=== PATIENT | female | born 1965 | race Caucasian/White ===

== ENCOUNTER 2024-07-26 11:12 | Observation (INO) ==
--- NOTE | 2024-07-26 11:31 | ED Triage Note ---
Date of Service July 26, 2024 Provider in Triage Author: Natalia Stanley History of Present Illness This patient was briefly evaluated while in triage. An abbreviated physical exam was performed. This patient is a 58-year-old Female who presents to the ED for evaluation of URI symptoms for about a week. Pt. was positive for Influenza A (H1N1) at [place] ED about a week ago. Pt. not feeling better. States she generally feels worse. Has been sick for almost 7 days. States she is a current smoker. Feeling more shortness of breath. Physical Exam VITALS: Vitals are noted on the nurse's note and reviewed by myself. GENERAL: This is a 58 year old female, in no acute distress, nondiaphoretic, well-developed well-nourished. SKIN: No obvious rashes, edema, erythema HEAD: Normocephalic atraumatic. EYES: Conjunctivae without injection, sclerae without icterus. NECK: No JVD. LUNGS: No retractions or accessory muscle use. MUSCULOSKELETAL: Normal gait. NEURO: Patient was alert and oriented to person place and time. No focal ne urological deficits. Initial orders for labs and / or imaging were placed and patient was placed in the waiting area until a bed is available. Please see further documentation for the full ED course.
--- NOTE | 2024-07-26 12:45 | Emergency Department Note ---
Impression & Plan Acute hypoxemic respiratory failure, Influenza A, Acute dyspnea ED Provider Note HISTORY OF PRESENT ILLNESS: Patient is a 58-year-old female presenting with shortness of breath and a cough. Patient reports symptoms started over a week ago and she went to [place] emergency department 1 week ago and was diagnosed with influenza A H1 N1 infection. She reports she was not given any Tamiflu. Reports over the last week she has had progressively worsening of her symptoms. States that she is only able to take a few steps at a time before becoming significantly winded. She denies any chest pain with her shortness of breath. She denies any nausea or vomiting. She does not wear any supplemental oxygen at baseline. Denies any DVT or PE history. Does not on any anticoagulation or antiplatelet therapy. Patient reports he has been having a cough productive of a green sputum. ROS: as above PHYSICAL EXAM: Constitutional: Patient appears in no acute distress. HENT: Head: Normocephalic and atraumatic. Eyes: EOMI, PERRL Mouth/Throat: Mucous membranes moist. Neck: Trachea midline. Neck supple. Cardiovascular: RRR, No murmurs, rubs or gallops. Intact distal pulses. Pulmonary/Chest: Conversationally dyspneic. Diffuse expiratory wheezes. Patient hypoxic on room air and placed on 2 L nasal cannula. Abdominal: Abdomen soft, no tenderness, rebound or guarding. Musculoskeletal: No edema, tenderness or deformity noted. Skin: Warm and dry. No rash, erythema, pallor or cyanosis Psychiatric: Appropriate mood and affect for situation. Neurological: Alert and keenly responsive. CN II-XII grossly intact, moving all extremities equally and fully. MDM: - Vitals signs showed hypoxia and tachycardia. - History obtained via patient. History as above. - Chronic conditions affecting care: None - Differential diagnoses include, but are not limited to: Congestive heart failure; acute coronary syndrome; COPD/asthma exacerbation; pulmonary edema; pulmonary embolism; pneumonia; pneumothorax; viral syndrome - Order placed for continuous cardiac monitoring. At this time, monitor showed rate of 83 bpm with normal sinus rhythm, per my interpretation. - External medical records reviewed. - EKG interpreted by myself showed normal sinus rhythm. Rate 92 bpm. QT 354. No acute ischemic changes. - Laboratory workup interpreted by myself showed normal WBC; normal PT/INR; slight hypokalemia (K 3.4); normal BNP; normal troponin - Viral respiratory panel positive for influenza A - CXR negative for pneumonia, per my interpretation - UA negative for infection - Patient given duoneb treatment in ER. - Given patient's 1 week of symptoms, she is outside the window for Tamiflu. Given new oxygen requirement, will admit to hospitalist service - Discussion was had with case assembler about patient's case and need for admission - Hospitalist consulted for admission - Patient admitted to [facility] hospitalist service for further evaluation and management. ASSESSMENT AND PLAN: Diagnosis: Acute hypoxia; influenza A; acute dyspnea Plan: admit Past Med/Surg History Problem List (Updated 07/26/24 @ 15:03 by Isabelle Mclaughlin MD) Acute dyspnea (Acute) Influenza A (Acute) Acute hypoxemic respiratory failure (Acute) Social History Smoking Status: Current every day smoker Preferred Language: Nepalese Feels Safe at Home: Yes Results & Data (ED) Vital Signs Vital Signs - 24 hr 07/26/24 11:28 07/26/24 14:50 07/26/24 14:50 Temperature 36.6 C 37.2 C Temperature Source Temporal Artery Scan Oral Pulse Rate 105 H 83 Pulse Rate [Apical] 84 Pulse Rhythm Regular Pulse Rhythm [Apical] Regular Pulse Strength Normal Pulse Strength [Apical] Normal Respiratory Rate 19 20 20 Respiratory Effort / Characteristics Non-Labored Spontaneous Non-Labored Spontaneous Respiratory Depth Normal Normal Respiratory Pattern Regular Regular Blood Pressure 104/74 Blood Pressure [Left Arm] 119/81 Blood Pressure Mean 84 Blood Pressure Mean [Left Arm] 93 Blood Pressure Position Sitting Blood Pressure Position [Left Arm] Semi-fowlers Pulse Oximetry 88 L 89 L 89 L Oxygen Delivery Method Room Air Room Air Room Air Oxygen Flow Rate Sepsis Recent Fever Within 48 Hours No Sepsis New/Unexplained Change in Mental Status No Sepsis Action Taken by Nursing No Action Required 07/26/24 14:51 07/26/24 14:51 Temperature Temperature Source Pulse Rate 83 Pulse Rate [Apical] Pulse Rhythm Regular Pulse Rhythm [Apical] Pulse Strength Pulse Strength [Apical] Respiratory Rate 20 20 Respiratory Effort / Characteristics Non-Labored Spontaneous Respiratory Depth Normal Respiratory Pattern Regular Blood Pressure Blood Pressure [Left Arm] Blood Pressure Mean Blood Pressure Mean [Left Arm] Blood Pressure Position Blood Pressure Position [Left Arm] Pulse Oximetry 93 93 Oxygen Delivery Method Nasal Cannula Nasal Cannula Oxygen Flow Rate 2 2 Sepsis Recent Fever Within 48 Hours Sepsis New/Unexplained Change in Mental Status Sepsis Action Taken by Nursing Laboratory Data 07/26/24 12:08 07/26/24 12:08 Lab Results 07/26/24 07/26/24 07/26/24 Range/Units 11:35 12:08 12:20 WBC 5.17 (4.8-10.8) K/ul RBC 4.57 (4.20-5.40) M/uL Hgb 15.0 (12.0-16.0) g/dl Hct 44.6 (37.0-47.0) % MCV 97.6 (80.0-100.0) fL MCH 32.8 (25.0-34.0) pg MCHC 33.6 (32.0-36.0) g/dL RDW Std Deviation 42.8 (36.4-46.3) fL RDW Coeff of Chey 11.9 (11.5-14.5) % Plt Count 186 (130-400) K/uL MPV 9.9 (9.4-12.4) fL Immature Gran % (Auto) 0.6 % Neut % (Auto) 47.7 % Lymph % (Auto) 42.0 % Allen % (Auto) 8.9 % Eos % (Auto) 0.2 % Baso % (Auto) 0.6 % Neut # (Auto) 2.47 (1.40-6.50) K/uL Lymph # (Auto) 2.17 (1.20-3.40) K/uL Allen # (Auto) 0.46 (0.11-0.59) K/uL Eos # (Auto) 0.01 (0.00-0.50) K/uL Baso # (Auto) 0.03 (0.00-0.20) K/uL Immature Gran # (Auto) 0.03 (0.01-0.20) K/uL RBC Morphology Unremarkable PT 10.9 (9.0-12.0) Seconds INR 1.0 (0.9-1.1) APTT 26 (21-31) Seconds PTT Ratio 1.0 D-Dimer 360 (0-500) ug/L FEU Sodium 140 (136-145) mmol/L Potassium 3.4 L (3.5-5.1) mmol/L Chloride 99 (98-107) mmol/L Carbon Dioxide 36 H (21-32) mmol/L Anion Gap 5 (3-11) BUN 10 (6-23) mg/dl Creatinine 0.58 L (0.6-1.2) mg/dl Est Cr Clr Drug Dosing 95.0 ml/min eGFR 104.83 BUN/Creatinine Ratio 17.2 (10-20) Glucose 136 H (70-99(Fasting)) mg/dl Calcium 9.0 (8.6-10.3) mg/dl Magnesium 2.0 (1.7-2.4) mg/dl Total Bilirubin 0.4 (0.2-1.0) mg/dl AST 26 (13-39) U/L ALT 28 (7-52) U/L Alkaline Phosphatase 60 (34-104) U/L Troponin I High Sens 3.0 (0-14) pg/ml B-Natriuretic Peptide 99 (0-100) pg/ml Total Protein 6.8 (6.0-8.3) gm/dl Albumin 4.0 (3.4-5.0) gm/dl Globulin 2.8 (2.5-4.0) gm/dl Albumin/Globulin Ratio 1.4 (0.9-2) Urine Color Dark Yellow Urine Appearance Clear (Clear) Urine pH 7.0 (4.5-7.5) Ur Specific [place] 1.022 (1.000-1.030) Urine Protein 1+ H (Negative) Urine Glucose (UA) Negative (Negative) Urine Ketones Trace H (Negative) Urine Blood Negative (Negative) Urine Nitrite Negative (Negative) Urine Bilirubin Negative (Negative) Urine Urobilinogen Negative (Negative) Ur Leukocyte Esterase 1+ H (Negative) Urine WBC (Auto) 6-10 H (0-5) /hpf Urine RBC (Auto) 0-2 (0-2) /hpf U Hyaline Cast (Auto) 0-2 (0-2) /lpf U Epithel Cells (Auto) 6-10 H (0-2) /hpf Urine Bacteria (Auto) 1+ H (None Seen) Urine Mucus Present A (None Prsent) Adenovirus (PCR) Not Detected (NotDetected) B. pertussis DNA (PCR) Not Detected (NotDetected) B.parapertussis DNA PCR Not Detected (NotDetected) C. pneumoniae DNA (PCR) Not Detected (NotDetected) Coronavirus OC43 (PCR) Not Detected (NotDetected) Coronavirus HKU1 (PCR) Not Detected (NotDetected) Coronavirus 229E (PCR) Not Detected (NotDetected) SARS-CoV-2 (PCR) Not Detected (NotDetected) Coronavirus NL63 (PCR) Not Detected (NotDetected) Human Metapneumovir PCR Not Detected (NotDetected) Influenza A (H3) PCR DETECTED A (NotDetected) Influenza Type B (PCR) Not Detected (NotDetected) M. pneumoniae (PCR) Not Detected (NotDetected) Parainfluenza 1 (PCR) Not Detected (NotDetected) Parainfluenza 2 (PCR) Not Detected (NotDetected) Parainfluenza 3 (PCR) Not Detected (NotDetected) Parainfluenza 4 (PCR) Not Detected (NotDetected) RSV (PCR) Not Detected (NotDetected) Entero/Rhino (PCR) Not Detected (NotDetected) Administered Medications Discontinued Medications Albuterol (Albut/Ipratrop 3mg/0.5mg Neb 3 Ml Vial) 3 ml NEB NOW STA; Protocol Stop: 07/26/24 14:43 Last Admin: 07/26/24 14:51 Dose: 3 ml Documented By: CAW Imaging Data Radiologist's Impression: Chest X-Ray 07/26/24 11:17 XR chest 1V not portable CLINICAL HISTORY: Dyspnea COMPARISON STUDY: None FINDINGS: Heart size and pulmonary vasculature are normal. Lungs are hyperexpanded consistent with emphysema. No effusion, consolidation, or pneumothorax. IMPRESSION: Hyperexpanded lungs with no pneumonia seen. ACT 112: Negative or not required by law. Electronically signed by: Gui Vasquez M.D. 07/26/2024 12:49 PM Discharge Plan Visit Data Chief Complaint: Flu Like Symptoms Stated Complaint: SOB, COUGH, CONGESTION, SHAKES, NO APPETITE ED Provider: Isabelle Mclaughlin Discharge Problem: Acute hypoxemic respiratory failure, Influenza A, Acute dyspnea Forms Stand Alone Forms: [facility] Referrals Referrals: PCP,NO [Physician] -
--- NOTE | 2024-07-26 12:50 | XRay Report ---
XR chest 1V not portable CLINICAL HISTORY: Dyspnea COMPARISON STUDY: None FINDINGS: Heart size and pulmonary vasculature are normal. Lungs are hyperexpanded consistent with em physema. No effusion, consolidation, or pneumothorax. IMPRESSION: Hyperexpanded lungs with no pneumonia seen. ACT 112: Negative or not required by law. Electronically signed by: Gui Vasquez M.D. 07/26/2024 12:49 PM
[2024-07-26 12:51] LABS: Hematocrit (blood only) 44.6 % (37.0-47.0); Mean Corpuscular Hemoglobin 32.8 pg (25.0-34.0); Mean Corpuscular Hgb Conc 33.6 g/dL (32.0-36.0); Mean Corpuscular Volume 97.6 fL (80.0-100.0); Mean Platelet Volume 9.9 fL (9.4-12.4); Platelet Count 186 K/uL (130-400); RDW Coefficient of Variation 11.9 % (11.5-14.5); RDW Standard Deviation 42.8 fL (36.4-46.3); Red Blood Count 4.57 M/uL (4.20-5.40); White Blood Count 5.17 K/ul (4.8-10.8)
[2024-07-26 13:01] LABS: Albumin Globulin Ratio 1.4 (0.9-2); BUN Creatinine Ratio 17.2 (10-20); Bilirubin,Total 0.4 mg/dl (0.2-1.0); Globulin 2.8 gm/dl (2.5-4.0); Potassium 3.4 mmol/L (3.5-5.1); Total Protein 6.8 gm/dl (6.0-8.3)
[2024-07-26 13:14] LABS: Basophils # (auto) 0.03 K/uL (0.00-0.20); Basophils % (auto) 0.6 %; Eosinophils # (auto) 0.01 K/uL (0.00-0.50); Eosinophils % (auto) 0.2 %; Immature Granulocytes # (auto) 0.03 K/uL (0.01-0.20); Immature Granulocytes % (auto) 0.6 %; Lymphocytes # (auto) 2.17 K/uL (1.20-3.40); Monocytes # (auto) 0.46 K/uL (0.11-0.59); Monocytes % (auto) 8.9 %; Neutrophils # (auto) 2.47 K/uL (1.40-6.50); Neutrophils % (auto) 47.7 %; RBC Morphology Unremarkable
[2024-07-26 13:15] LABS: D Dimer 360 ug/L FEU (0-500); Partial Thromboplastin Time 26 Seconds (21-31); Prothrombin Time 10.9 Seconds (9.0-12.0)
[2024-07-26 13:34] LABS: Adenovirus PCR Not Detected (NotDetected); Bordetella parapertussis PCR Not Detected (NotDetected); Bordetella pertussis PCR Not Detected (NotDetected); Chlamydia pneumoniae PCR Not Detected (NotDetected); Coronavirus 229E PCR Not Detected (NotDetected); Coronavirus CoV-2 (COVID19)PCR Not Detected (NotDetected); Coronavirus HKU1 PCR Not Detected (NotDetected); Coronavirus NL63 PCR Not Detected (NotDetected); Coronavirus OC43PCR Not Detected (NotDetected); Human Metapneumovirus PCR Not Detected (NotDetected); Influenza A (H3) PCR DETECTED (NotDetected); Influenza B PCR Not Detected (NotDetected); Mycoplasma pneumoniae PCR Not Detected (NotDetected); Parainfluenza Virus 1 PCR Not Detected (NotDetected); Parainfluenza Virus 2 PCR Not Detected (NotDetected); Parainfluenza Virus 3 PCR Not Detected (NotDetected); Parainfluenza Virus 4 PCR Not Detected (NotDetected); Respiratory Syncytial VirusPCR Not Detected (NotDetected); Rhinovirus/Enterovirus PCR Not Detected (NotDetected)
[2024-07-26 13:39] LABS: Appearance Urine Clear (Clear); Bacteria Urine Automated 1+ (None Seen); Bilirubin Urine Negative (Negative); Blood Urine Negative (Negative); Cast Urine Automated 0-2 /lpf (0-2); Color Urine Dark Yellow; Glucose Urine UA Negative (Negative); Ketones Urine Trace (Negative); Leukocyte Esterase Urine 1+ (Negative); Mucus Urine Present (None Prsent); Nitrite Urine Negative (Negative); Protein Urine 1+ (Negative); RBC Urine Automated 0-2 /hpf (0-2); Specific Gravity Urine 1.022 (1.000-1.030); Urobilinogen Urine Negative (Negative)
[2024-07-26] MEDS: ALBUT/IPRATROP 3MG/0.5MG NEB 3 ML VIAL NEB STA (14:51)
--- NOTE | 2024-07-26 15:27 | Hospitalist Consultation ---
Date of Consultation July 26, 2024 Assessment & Plan (1) Influenza A: (2) Acute dyspnea: (3) Hypokalemia: (4) Asymptomatic bacteriuria: (5) Depression: Plan Patient is a 58-year-old female with a past medical history of depression. She was evaluated by the hospitalist team due to hypoxia caused by influenza A. After 1 DuoNeb treatment she was titrated to room air and at 92%. #hypoxia/ influenza A Influenza A on biofire, symptomatic x1 week Patient 88% on room air -> 1 douneb tx -> 92 RA CXR does not show pneumonia consider discharge with duoneb prn at home Outside of Tamiflu window Supportive care #Hypokalemia Secondary to decreased oral intake 3.4 -> 40 MeQ ordered mg stable, 2.0; continue home supplement recommend repeat BMP with PCP in 1 week #bacteruria UA showing 1+ protein, trace ketones, 6-10 WBC, 6-10 epithelial cells, 1+ bacteria Denies urinary symptoms Likely contaminated, defer ABX treatment at this time #depression continue Buspar Dispo: discharge home, to be discharged by ED provider History of Present Illness History of Present Illness Patient is a 58-year-old female with a past medical history of depression. She stated she went to [place] ED 1 week ago and tested positive for influenza A and was told to continue with supportive care. She stated that over the past week she has not improved. She has dyspnea both at rest and on exertion. She has also had congestion with yellow/green sputum production and rhinorrhea. She stated she also has stomach pain that goes up under her ribs into her back, described more as pleuritic chest pain. She stated she did have constipation but it is now recommended. She has not had a decreased appetite and has been trying to stay well-hydrated, but she does endorse decreased oral intake. She did previously have a fever and nausea but those have both resolved. She denies dizziness, lightheadedness, chest pain, vomiting, diarrhea, dysuria, difficulty urinating, hematuria. She does endorse dark urine today. In ED today CXR just showed hyperinflation of lungs, no pneumonia. She did test positive for influenza A. She is now outside of Tamiflu window. She does have a long smoking history, smokes about 10 cigarettes a day for many years. She denies alcohol use. She denies any past history of CVA, diabetes, previous VTE, arrhythmias, CHF, COPD, asthma. She does not use oxygen at baseline; no CPAP/BiPAP at night. Her only home medication is BuSpar 5 Mg every morning. She wishes to be full code at this time. Upon examination, finished duoneb treatment, was titrated off O2 and on 92% RA. Patient History Social History Smoking Status: Current every day smoker Preferred Language: Mexican Feels Safe at Home: Yes Review of Systems Review of Systems: see HPI Physical Exam Physical Exam: The patient is awake, alert and oriented 3, well developed and well nourished, normocephalic and atraumatic, in no acute distress. Non-toxic appearing. HEENT- EOMI, mucous membranes moist. Hearing grossly intact. Heart-normal S1 and S2. No murmurs, rubs or gallops. Lungs-clear bilaterally, no respiratory distress, no accessory muscle use. Abdomen-normal bowel sounds and soft. No ascites noted. Non-tender. Extremities- no clubbing, cyanosis, or edema. Rheumatologic-normal range of motion. Psychiatric-normal affect. Results & Data Results & Data Vital Signs (Past 12 Hours) Vital Signs Temp Pulse Pulse Resp BP BP Pulse Ox 07/26/24 15:17 88 07/26/24 14:51 83 20 93 07/26/24 14:51 20 93 07/26/24 14:50 83 20 89 L 07/26/24 14:50 37.2 C 84 20 119/81 89 L 07/26/24 11:28 36.6 C 105 H 19 104/74 88 L O2 Del Method O2 Flow Rate 07/26/24 15:17 07/26/24 14:51 Nasal Cannula 2 07/26/24 14:51 Nasal Cannula 2 07/26/24 14:50 Room Air 07/26/24 14:50 Room Air 07/26/24 11:28 Room Air Medications Administered Duoneb x1 Postissium 40 MeQ PO PG Care Time/CCT Total # of Minutes Spent Total Time Spent with Patient: Total time spent is greater than 50% in coordination of care (as documented) at patient's floor/unit and/or counseling patient: Coding Diagnoses Influenza A J10.1 Acute dyspnea R06.00 Hypokalemia E87.6 Asymptomatic bacteriuria R82.71 Depression F32.A
--- NOTE | 2024-07-26 15:46 | History & Physical Report ---
Date of Service July 26, 2024 Assessment & Plan (1) Influenza A: (2) Acute dyspnea: (3) Hypokalemia: (4) Asymptomatic bacteriuria: (5) Depression: Plan Patient is a 58-year-old female with a past medical history of depression. She is being admitted for hypoxia caused by influenza A. #hypoxia/ influenza A Influenza A on biofire, symptomatic x1 week Patient 88% on room air -> 1 douneb tx -> 92 RA CXR does not show pneumonia Outside of Tamiflu window promote oral hydration incentive spirometry Mucinex scheduled DuoNebs IV solu-medrol 40 mg on admission, 40 IV in AM prior to dc #Hypokalemia Secondary to decreased oral intake 3.4 -> 40 MeQ ordered, will give additional 20 MeQ 1/7 PM mg stable, 2.0; continue home supplement repeat bmp and Mg in AM #bacteruria UA showing 1+ protein, trace ketones, 6-10 WBC, 6-10 epithelial cells, 1+ bacteria Denies urinary symptoms Likely contaminated, defer ABX treatment at this time cultures sent #depression continue Buspar VTE ppx: SCDs - low risk and anticipate overnight stay Diet: regular Dispo: med surg with continuous pulse ox plan for discharge 07/27 if non-hypoxic on room air; with steroid taper. Admission and Anticipated Discharge Date Admission Date: 07/26/24 History of Present Illness Chief Complaint: flu like sx Primary Care Provider: Meghana Chavira PA-C Patient is a 58-year-old female with a past medical history of depression. She stated she went to [place] ED 1 week ago and tested positive for influenza A and was told to continue with supportive care. She stated that over the past week she has not improved. She has dyspnea both at rest and on exertion. She has also had congestion with yellow/green sputum production and rhinorrhea. She stated she also has stomach pain that goes up under her ribs into her back, described more as pleuritic chest pain. She stated she did have constipation but it is now recommended. She has not had a decreased appetite and has been trying to stay well-hydrated, but she does endorse decreased oral intake. She did previously have a fever and nausea but those have both resolved. She denies dizziness, lightheadedness, chest pain, vomiting, diarrhea, dysuria, difficulty urinating, hematuria. She does endorse dark urine today. In ED today CXR just showed hyperinflation of lungs, no pneumonia. She did test positive for influenza A. She is now outside of Tamiflu window. She does have a long smoking history, smokes about 10 cigarettes a day for many years. She denies alcohol use. She denies any past history of CVA, diabetes, previous VTE, arrhythmias, CHF, COPD, asthma. She does not use oxygen at baseline; no CPAP/BiPAP at night. Her only home medication is BuSpar 5 Mg every morning. She wishes to be full code at this time. Home Medications Medication Instructions Recorded Confirmed Type buspirone 7.5 mg tablet 5 mg PO QAM 07/26/24 07/26/24 History Past Med/Surg History Problem List (Updated 07/26/24 @ 15:29 by Cindy Junior PA-C) Hypokalemia Depression Asymptomatic bacteriuria Acute dyspnea (Acute) Influenza A (Acute) Acute hypoxemic respiratory failure (Acute) Social History Smoking Status: Current every day smoker Preferred Language: Bengali Feels Safe at Home: Yes Review of Systems Review of Systems: see HPI Physical Exam Physical Exam: The patient is awake, alert and oriented 3, well developed and well nourished, normocephalic and atraumatic, in no acute distress. Non-toxic appearing. HEENT- EOMI, mucous membranes moist. Hearing grossly intact. Heart-normal S1 and S2. No murmurs, rubs or gallops. Lungs-clear bilaterally, no respiratory distress, no accessory muscle use. Abdomen-normal bowel sounds and soft. No ascites noted. Non-tender. Extremities- no clubbing, cyanosis, or edema. Rheumatologic-normal range of motion. Psychiatric-normal affect. Results & Data Results & Data Vital Signs (Past 12 Hours) Vital Signs Temp Pulse Pulse Pulse Resp Resp BP 07/26/24 15:43 91 H 07/26/24 15:17 88 07/26/24 14:51 83 07/26/24 14:51 20 07/26/24 14:50 83 20 07/26/24 14:50 37.2 C 84 07/26/24 11:28 36.6 C 105 H 19 104/74 BP Pulse Ox Pulse Ox O2 Del Method O2 Flow Rate 07/26/24 15:43 85 L Room Air 07/26/24 15:17 07/26/24 14:51 93 Nasal Cannula 2 07/26/24 14:51 93 Nasal Cannula 2 07/26/24 14:50 89 L Room Air 07/26/24 14:50 119/81 89 L Room Air 07/26/24 11:28 88 L Room Air Laboratory Results reviewed CBC, CMP, UA, bio fire Diagnostic Findings reviewed CXR Medications Administered douneb x 1 potassium 40 MeQ PO ECG Additional Comments: ordered Code Status & VTE Plan Code Status full VTE Prophylaxis Plan VTE Prophylaxis will be ordered: Yes Supervising Physician Co-Signing Physician Notes Attending addendum: I have physically seen this patient, have supervised the AJ's activities, and agree with the H&P unless as otherwise noted. Assessment and Plan: Acute respiratory failure with hypoxia/influenza A recent infection- Patient desaturates to 85% on room air with minimal ambulation Solu-Medrol IV as noted now in the a.m. DuoNebs every 2 hours as needed Mucinex 600 mg p.o. every 12 hours Nasal cannula oxygen, titrate to keep pulse ox 92-94% Hypokalemia- Potassium 3.4 admission Give Klor-Con 40 mill equivalents p.o. now, and recheck laboratories in a.m. Magnesium 2.0 Repeat laboratories in the a.m. Bacteriuria- Urinalysis with asymptomatic bacteriuria Follow urine culture sensitivity No antibiotics/symptoms PG Care Time/CCT Total # of Minutes Spent Total Time Spent with Patient: Total time spent is greater than 50% in coordination of care (as documented) at patient's floor/unit and/or counseling patient: Coding Level of Care Code 95464 INT INP/OBS CARE 3/75MIN Diagnoses Influenza A J10.1 Acute dyspnea R06.00 Hypokalemia E87.6 Asymptomatic bacteriuria R82.71 Depression F32.A
[2024-07-26] MEDS: POTASSIUM CHLORIDE CRTAB 20 MEQ TABCR PO STA (16:25)
[2024-07-26] MEDS: Patient's ALLERGY Info needs ENTERED SCH (16:27)
[2024-07-26] MEDS: methylPREDNISolone 125 MG/2 ML VIAL IV STA (16:28)
[2024-07-26] MEDS ORDERED: ACETAMINOPHEN 325 MG TAB PO PRN (17:47)
[2024-07-26] MEDS ORDERED: DOCUSATE SODIUM 100 MG CAP PO PRN (17:47)
[2024-07-26] MEDS: POTASSIUM CHLORIDE CRTAB 20 MEQ TABCR PO ONE (19:39)
[2024-07-26] MEDS: guaiFENesin 600 MG TABCR PO SCH (19:39)
[2024-07-26] MEDS: ALBUT/IPRATROP 3MG/0.5MG NEB 3 ML VIAL NEB SCH (21:07)
[2024-07-27 07:34] LABS: Hematocrit (blood only) 43.6 % (37.0-47.0); Hemoglobin 14.6 g/dl (12.0-16.0); Mean Corpuscular Hemoglobin 32.9 pg (25.0-34.0); Mean Corpuscular Hgb Conc 33.5 g/dL (32.0-36.0); Mean Corpuscular Volume 98.2 fL (80.0-100.0); Mean Platelet Volume 9.9 fL (9.4-12.4); Platelet Count 210 K/uL (130-400); RDW Coefficient of Variation 11.9 % (11.5-14.5); RDW Standard Deviation 43.1 fL (36.4-46.3); Red Blood Count 4.44 M/uL (4.20-5.40); White Blood Count 9.24 K/ul (4.8-10.8)
[2024-07-27 07:51] LABS: BUN Creatinine Ratio 23.6 (10-20); Calcium 8.9 mg/dl (8.6-10.3); Creatinine Clr Calc Pharmacy 99.1 ml/min; Magnesium 2.1 mg/dl (1.7-2.4); Potassium 4.6 mmol/L (3.5-5.1)
--- NOTE | 2024-07-27 07:56 | Hospitalist Progress Note ---
Date of Service July 27, 2024 Assessment & Plan (1) Influenza A: Plan: Patient is a 58-year-old female with a past medical history of depression. She is being admitted for hypoxia caused by influenza A. #hypoxia/ influenza A Influenza A on biofire, symptomatic x1 week 88% on room air -> 1 douneb tx -> 92 on RA CXR does not show pneumonia, repeat without consolidation Outside window for tamiflu Is smoker, added azithromycin for atypical coverage Duonebs changed to Xopenex q6h scheduled Methylprednisolone 40mg IV daily, will increase to TID given ongoing hypoxia to see if improvement and able to titrate to RA this afternoon given wanting to go home If ongoing O2 requirement and patient continued improvement this afternoon can plan for 2step and prednisone taper/albuterol HFA at discharge with close follow up and would continue Azithromycin 500mg PO x 3 days, smoking cessation. Would need work note prior to dc. Recs to get pulse ox to check her sats at home, does appear with emphysema on CXR and would likely benefit from ref to pulm outpt vs obtaining PFTs for baseline/treatment following. (2) Acute dyspnea: Plan: suspected 2nd to above steroids/nebs, supplemental O2 as needed Reports improving but ongoing O2 req and may need supplemental o2 at dc (3) Hypokalemia: Plan: Secondary to decreased oral intake K 3.4, 60meq PO ordered on admission K 4.6 on AM labs Mag 2.1 Monitor (4) Asymptomatic bacteriuria: Plan: #bacteruria UA showing 1+ protein, trace ketones, 6-10 WBC, 6-10 epithelial cells, 1+ bacteria Denies urinary symptoms Likely contaminated, defer ABX treatment at this time cultures sent /pending but not symptomatic but reports when she does have symptoms "it's gone too far" --> urine cx pending but afebrile/no leukocytosis (noting WBC elevation likely 2nd to steroids provided) (5) Depression: Plan: continue Buspar , does appear anxious but reporting needing to get home to her dog Plan VTE ppx: SCDs - low risk and anticipate overnight stay and dc this afternoon but can add if remaining inpatient Dispo: hopeful dc this afternoon on azithromycin/prednisone taper depending O2 requirement. If ongoing needs/wanting to go home will plan for 2step/O2 arrangement at dc Admission and Anticipated Discharge Date Admission Date: July 26, 2024 Supervising Physician Co-Signing Physician Notes The patient was not seen by me. The chart was reviewed. Case discussed with VINNY Rollins. Agree with assessment and plan Subjective Eval this morning, in bed, sister at bedside Reports feeling better, bringing up darker/roque/brown colored sputum. Hasn't smoked since this started. Less wheezing on exam but on 2L, SpO2 96%. She is hoping for discharge today, not typically on oxygen Discussed could dc on prednisone taper/mucinex/albuterol HFA. If issues with oxygen, can plan for 2step as she is hoping to go home. Encouraged sister to get pulse ox at [facility] for her to continue to monitor her saturations.. Questions/concerns addressed at this time. Will need work note, works in [employer] at [employer]. Started 1.5yrs ago. Physical Exam 2 Physical Exam: 58yo female sitting up in bed, NAD/repor ts feeling better/wanting to go home, sister in room, on 2L NC this morning, +cough/sputum production, eating fast food HEENT: head atraumatic, normocephalic, mmm, trachea midline Resp: diminished in the bases but no further wheezing (did just get neb treatment), faint bibasilar crackles but no rales, on 2L NC, +cough, no tachypnea CV: RRR, no significant m,r/g, no pitting edema/calf tenderness GI: +BS, soft/NT no guzman MSK/Neuro: nonfocal, not confused, answering questions appropriately Psych: AOx3, cooperative but anxious/wanting to go home Results & Data Results & Data Vital Signs (Past 12 Hours) Vital Signs Pulse Pulse Resp Pulse Ox O2 Del Method O2 Flow Rate 07/27/24 07:17 70 20 92 Nasal Cannula 2 07/26/24 21:11 72 16 97 Nasal Cannula 2 Laboratory Results 07/27/24 07:09 07/27/24 07:09 Mag 2.1 Diagnostic Findings Chest X-Ray 07/26/24 11:17 XR chest 1V not portable CLINICAL HISTORY: Dyspnea COMPARISON STUDY: None FINDINGS: Heart size and pulmonary vasculature are normal. Lungs are hyperexpanded consistent with emphysema. No effusion, consolidation, or pneumothorax. IMPRESSION: Hyperexpanded lungs with no pneumonia seen. ACT 112: Negative or not required by law. Electronically signed by: Gui Vasquez M.D. 07/26/2024 12:49 PM Chest X-Ray 07/27/24 07:55 XR chest 2V PA/lateral HISTORY: 58 years-old Female f/u hypoxia acute shortness of breath COMPARISON: 07/26/2024 TECHNIQUE: PA and lateral views of the chest FINDINGS: Cardiomediastinal and hilar silhouettes are within normal limits. Hyperinflation with diaphragmatic flattening. No pneumothorax, pleural effusion or airspace consolidation. The bones appear grossly intact. IMPRESSION: No acute process. ACT 112: Negative or not required by law. The above report was generated using voice recognition software. It may contain grammatical, syntax or spelling errors. Electronically signed by: Sukhjinder Madrid M.D. 07/27/2024 11:09 AM PG Care Time/CCT Total # of Minutes Spent Total Time Spent with Patient: Total time spent is greater than 50% in coordination of care (as documented) at patient's floor/unit and/or counseling patient: Coding Level of Care Code 43618 SUB INP/OBS CARE 2/35MIN Diagnoses Influenza A J10.1 Acute dyspnea R06.00 Hypokalemia E87.6 Asymptomatic bacteriuria R82.71 Depression F32.A
[2024-07-27 08:02] VITALS: BP 112/77; TEMP 98.2
[2024-07-27 08:03] LABS: Basophils # (auto) 0.02 K/uL (0.00-0.20); Basophils % (auto) 0.2 %; Immature Granulocytes # (auto) 0.03 K/uL (0.01-0.20); Immature Granulocytes % (auto) 0.3 %; Lymphocytes # (auto) 2.12 K/uL (1.20-3.40); Lymphocytes % (auto) 22.9 %; Monocytes # (auto) 0.65 K/uL (0.11-0.59); Neutrophils # (auto) 6.42 K/uL (1.40-6.50); Neutrophils % (auto) 69.6 %
[2024-07-27] MEDS: methylPREDNISolone 40 MG in SYRINGE 0 ML IV SCH ×2 (08:25→14:54)
[2024-07-27] MEDS: busPIRone 5 MG TAB PO SCH (08:29)
[2024-07-27] MEDS: LEVALBUTEROL HCL 0.63 MG/3 ML NEB NEB SCH (08:36)
[2024-07-27] MEDS ORDERED: methylPREDNISolone 125 MG/2 ML VIAL IV SCH (09:00)
[2024-07-27] MEDS: AZITHROMYCIN 250 MG TAB PO SCH (10:32)
--- NOTE | 2024-07-27 11:10 | XRay Report ---
XR chest 2V PA/lateral HISTORY: 58 years-old Female f/u hypoxia acute shortness of breath COMPARISON: 07/26/2024 TECHNIQUE: PA and lateral views of the chest FINDINGS: Cardiomediastinal and hilar silhouettes are within normal limits. Hyperinflation with diaphragmatic f lattening. No pneumothorax, pleural effusion or airspace consolidation. The bones appear grossly inta ct. IMPRESSION: No acute process. ACT 112: Negative or not required by law. The above report was generated using voice recognition software. It may contain grammatical, syntax o r spelling errors. Electronically signed by: Sukhjinder Madrid M.D. 07/27/2024 11:09 AM
[2024-07-27 13:23] VITALS: RESP 16
[2024-07-27 14:05] VITALS: PULSE 85; O2SAT 93
--- NOTE | 2024-07-27 15:01 | Discharge Summary ---
Discharge Summary Date of Service July 27, 2024 Principal Dx & Hospital Course #1 = Principal Diagnosis (1) Influenza A: Patient is a 58-year-old female with a past medical history of depression. She is being admitted for hypoxia caused by influenza A. #hypoxia/ influenza A Influenza A on biofire, symptomatic x1 week 88% on room air -> 1 douneb tx -> 92 on RA CXR does not show pneumonia, repeat without consolidation Outside window for tamiflu Is smoker, added azithromycin for atypical coverage 500mg PO x 1 now, plan for 250mg PO daily x 4 days Duonebs changed to Xopenex to prevent tachycardia Methylprednisolone 40mg IV daily, increased to see if improvement w/ hypoxia however ongoing needs but reporting wanting to go home. Repeat CXR without consolidation, did have discussion with patient about PFT testing as would recommend having as outpatient to assess baseline as w/ her suspected COPD/emphysema and smoking history that she could run 88-89% at baseline if not symptomatic with such and recommended getting pulse oximeter to monitor at home. Given want to go home/refusal to stay overnight, did obtain 2 step testing to see about O2 needs at dc -->Reviewed testing and patient needing 2L w/ rest and 3L w/ ambulation. Rx provided to CM and to be arranged prior to dc. Prednisone taper 10mg TID x 2 days, decrease to 10mg BID x 2 days and then 10mg x 2 days to complete taper Provided rx for Albuterol HFA to use OTC for now but further questioning with sister in room patient WAS ON BREZTRI in the past with coupons but unclear why not continued. [place] checked and sent to continue 2 puffs BID w/ albuterol as needed and to conitnue incentive spirometer/pulmonary toilet and mucinex BID to help w/ mucus clearance and continued azithromycin 250mg PO x another 4 days for atypical coverage. High risk for readmission but again offered to keep another night to see if able to have improvement/titrate off O2 but declined. Strongly encouraged smoking cessation, nicotine patches sent in and to avoid smoking, ESPECIALLY ON OXYGEN to avoid combustion/fire hazard. Wheezing resolved at time of discharge but discussed symptoms to return to ER> Sister to keep a close eye on her. (2) Acute dyspnea: suspected 2nd to above with smoking use and not on her maintence inhalers as previously rx tx w/ Duonebs/steroids with improvement in breathing and denied significant SOB but 2step as above with ongoing O2 requirement however unclear what baseline O2 sat is with her emphysema No leg swelling/pleuritic pain or hypotension to suggest PE. As above, rec PFT in follow up with PCP, consideration for PFT testing. Did rx Breztri as taking in the past but should follow up at [place] for ongoing use. Prednisone taper/azithro at [place] as above (3) Hypokalemia: Secondary to decreased oral intake and PO replacement ordered . Mag wnl and K improved on repeat testing (4) Asymptomatic bacteriuria: #bacteruria UA showing 1+ protein, trace ketones, 6-10 WBC, 6-10 epithelial cells, 1+ bacteria Denies urinary symptoms Likely contaminated, defer ABX treatment at this time cultures sent /pending but not symptomatic but reports when she does have symptoms "it's gone too far" --> urine cx pending but afebrile/no leukocytosis (noting WBC elevation likely 2nd to steroids provided but wnl) To f/u with PCP but given no symptoms deferred abx but if develops should notify provider/return to ER if severe (5) Depression: continued Buspar , does appear anxious but reporting needing to get home to her dog. supportive care Plan Discharged home on prednisone taper, albuterol HFA, azithromycin PO and breztri inhaler. Supplemental O2 at rest/ambulation arranged (2L rest, 3L ambulation) Notes For Next Care Provider Encouraged patient to stay overnight for continued treatment but was adamant about discharge/getting home for her dog/work (work note provided) and was discharged on suppplemental O2. CXR negative for consolidation/need for abx but did rx Azithromycin for atypical coverage/possible exacerbation Encouraged follow up PFT testing, possible pulm referral in follow up Strongly encouraged smoking cessation, nicotine patches sent Monitor final urine cx/for any symptoms but was asymptomatic Medication Changes From Visit Prednisone taper - 10mg TID x 2 days, 10mg BID x 2 days, then 10mg once daily x 2 days Azithromycin 250mg PO x 4 more days Albuterol HFA q6h Breztri 2 puffs BID Mucinex BID Nicotine patch Oxygen -- 2L w/ rest, 3L w/ ambulation Admission HPI Per Admitting Provider Patient is a 58-year-old female with a past medical history of depression. She stated she went to [facility] ED 1 week ago and tested positive for influenza A and was told to continue with supportive care. She stated that over the past week she has not improved. She has dyspnea both at rest and on exertion. She has also had congestion with yellow/green sputum production and rhinorrhea. She stated she also has stomach pain that goes up under her ribs into her back, described more as pleuritic chest pain. She stated she did have constipation but it is now recommended. She has not had a decreased appetite and has been trying to stay well-hydrated, but she does endorse decreased oral intake. She did previously have a fever and nausea but those have both resolved. She denies dizziness, lightheadedness, chest pain, vomiting, diarrhea, dysuria, difficulty urinating, hematuria. She does endorse dark urine today. In ED today CXR just showed hyperinflation of lungs, no pneumonia. She did test positive for influenza A. She is now outside of Tamiflu window. She does have a long smoking history, smokes about 10 cigarettes a day for many years. She denies alcohol use. She denies any past history of CVA, diabetes, previous VTE, arrhythmias, CHF, COPD, asthma. She does not use oxygen at baseline; no CPAP/BiPAP at night. Her only home medication is BuSpar 5 Mg every morning. She wishes to be full code at this time. Admission Exam Per Admitting Provider The patient is awake, alert and oriented 3, well developed and well nourished, normocephalic and atraumatic, in no acute distress. Non-toxic appearing. HEENT- EOMI, mucous membranes moist. Hearing grossly intact. Heart-normal S1 and S2. No murmurs, rubs or gallops. Lungs-clear bilaterally, no respiratory distress, no accessory muscle use. Abdomen-normal bowel sounds and soft. No ascites noted. Non-tender. Extremities- no clubbing, cyanosis, or edema. Rheumatologic-normal range of motion. Psychiatric-normal affect. Discharge Exam 58yo female sitting up in bed, reports feeling better/wanting to go home, sister in room, on 2L NC, +cough but NAD HEENT: head atraumatic, normocephalic, mmm, trachea midline Resp: diminished in the bases but air entry equal, no significant wheezing/rales, does have some faint bibasilar crackles, on 2L, no tachypnea, +cough CV: RRR, no significant m,r/g, no pitting edema/calf tenderness GI: +BS, soft/NT no guzman MSK/Neuro: nonfocal, not confused, answering questions appropriately Psych: AOx3, cooperative but anxious/wanting to go home Discharge Plan Discharge Items Patient Disposition: Home - Self-Care Reason For Visit: HYPOXIA Discharge Diagnosis: Influenza, acute respitatory failure with hypoxia Goals: You have been hospitalized for an acute medical problem. During your stay at [facility], we have made an effort to correct the problem that brought you to the hospital while keeping you as comfortable as possible. Medications were used to bring your condition under control and your discharge instructions will include directions for any medications you should take after leaving the hospital. Please make sure you see your Primary Care Provider as part of your follow up plan. Activity: As commented below Non-emergency contact: Primary Care Provider and Log Buyer Call non-emergency contact if: you have any medication questions, your symptoms worsen, your pain is concerning for you and you have a fever Follow-up/Referrals: Meghana Chavira PA-C [Primary Care Provider] - 08/03/24 2:00 pm ([facility] [address], [place] ) Diet: Regular Addtl Attending Provider Instructions: You have been hospitalized for shortness of breath. Viral testing was positive for influenza A but outside window for tamiflu. We have provided IV steroids and you have requested to go home despite ongoing oxygen use. As discussed, I recommend getting a pulse oximeter at [facility] to check your oxygen saturations as with your underlying emphysema you could have baseline 88- 89% but if drops lower would be concerning. We have sent a prescription for BREZTRI inhaler as previously used, but also recommend follow up/referral to pulmonology in follow up with primary care for pulmonary function testing. You should continue the albuterol inhaler every 6 hours for the next couple days and then can be used as needed for shortness of breath/wheezing. You should continue AZITHROMYCIN 250mg by mouth for the next 4 days for atypical bacteria but chest Xray did not show any consolidation/bacterial pneumonia. Please continue the incentive spirometer to help strengthen lungs. Oxygen testing was done and arrangements for ongoing oxygen to be at 2 liters at rest and increase to 3 liters with activity/ambulation. We have ordered nicotine patch to use and encourage avoiding smoking. Continue mucinex twice daily to help clear the mucus. Urine culture is pending at discharge but should discuss with primary care if any symptoms in follow up but have not given treatment given not having symptoms from such. AVOID SMOKING as this can worsen your breathing. Also, OXYGEN AND CIGARETTE USE IS FLAMMABLE AND CAN CAUSE EXPLOSION IF SMOKING NEAR YOUR OXYGEN. As discussed, please return to the ER with worsening breathing/shortness of breath, chest pain, or for any other symptoms concerning for you. Please follow up with primary care in the next 7-10 days to monitor your progress after discharge. It has been a pleasure being a part of the medical team providing for you while you have been in the hospital. Take care! Pending Studies at Discharge: Yes Studies:: urine culture Stand-Alone Forms: My [facility] [employer], Work/School Release, Smoking Cessation Medications and DC Order Prescriptions: New Breztri Aerosphere 160-9-4.8 mcg/actuation HFA aerosol inhaler 2 inh inhalation BID Qty: 5.9 0RF guaifenesin [Mucinex] 600 mg Tablet Extended Release 12hr 1,200 mg PO Q12 Qty: 28 0RF albuterol sulfate 90 mcg/actuation HFA aerosol inhaler 1 inh inhalation QID Qty: 6.7 0RF prednisone 10 mg tablet 10 mg PO DIRECTED Qty: 12 0RF Rx Instructions: see taper instructions - 10mg by mouth three times daily x 2 days, then 10mg twice daily x 2 days then 10mg once daily to complete taper azithromycin 250 mg tablet 250 mg PO DAILY 4 Days Qty: 4 0RF Rx Instructions: start on day 2 of therapy nicotine 14 mg/24 hr patch 24 hour 1 patch transdermal DAILY Qty: 7 0RF (DME) Oxygen Home Liters Per Minute See Rx Instructions .ROUTE Qty: 1 0RF Rx Instructions: As directed Continued buspirone 7.5 mg tablet 5 mg PO QAM Discharge Orders: Discharge Order (Routine); Ordered 07/27/24 Ordered By: Meghana Vazquez/Other Patient Handouts: Oxygen Supplemental, ED Shortness of Breath (Dyspnea) Admission Data Admit Date/Time: 07/26/24 15:56 Attending Provider: Sanjay Ceballos Admit Provider: Ted Lazaro Primary Care Provider: Meghana Chavira Other Providers: Ted Lazaro Other Interventions: Discharge Summary Assessment (RN) Last Done: 07/27/24 15:20 Hospital Stay Data Consultations 07/26/24 14:52 ED Decision to Admit Stat Discharge Instructions Given to Patient (Per Discharging Provider) You have been hospitalized for shortness of breath. Viral testing was positive for influenza A but outside window for tamiflu. We have provided IV steroids and you have requested to go home despite ongoing oxygen use. As discussed, I recommend getting a pulse oximeter at [facility] to check your oxygen saturations as with your underlying emphysema you could have baseline 88- 89% but if drops lower would be concerning. We have sent a prescription for BREZTRI inhaler as previously used, but also recommend follow up/referral to pulmonology in follow up with primary care for pulmonary function testing. You should continue the albuterol inhaler every 6 hours for the next couple days and then can be used as needed for shortness of breath/wheezing. You should continue AZITHROMYCIN 250mg by mouth for the next 4 days for atypical bacteria but chest Xray did not show any consolidation/bacterial pneumonia. Please continue the incentive spirometer to help strengthen lungs. Oxygen testing was done and arrangements for ongoing oxygen to be at 2 liters at rest and increase to 3 liters with activity/ambulation. We have ordered nicotine patch to use and encourage avoiding smoking. Continue mucinex twice daily to help clear the mucus. Urine culture is pending at discharge but should discuss with primary care if any symptoms in follow up but have not given treatment given not having symptoms from such. AVOID SMOKING as this can worsen your breathing. Also, OXYGEN AND CIGARETTE USE IS FLAMMABLE AND CAN CAUSE EXPLOSION IF SMOKING NEAR YOUR OXYGEN. As discussed, please return to the ER with worsening breathing/shortness of breath, chest pain, or for any other symptoms concerning for you. Please follow up with primary care in the next 7-10 days to monitor your progress after discharge. It has been a pleasure being a part of the medical team providing for you while you have been in the hospital. Take care! Supervising Physician Co-Signing Physician Notes The patient was not seen by me. The chart was reviewed. Case discussed with Meghana Milelr, PA. Agree with assessment and plan Total Time Total Time Spent Total Time Spent (In Minutes): 45 Coding Level of Care Code 38961 INP/OBS DISCH >30 MIN Diagnoses Influenza A J10.1 Acute dyspnea R06.00 Hypokalemia E87.6 Asymptomatic bacteriuria R82.71 Depression F32.A
--- NOTE | 2024-07-28 06:21 | Electrocardiogram Report ---
Test Reason : Blood Pressure : */* mmHG Vent. Rate : 92 BPM Atrial Rate : 92 BPM P-R Int : 136 ms QRS Dur : 72 ms QT Int : 354 ms P-R-T Axes : 85 -85 80 degrees QTcB Int : 437 ms Sinus rhythm with Premature atrial complexes Right atrial enlargement Left axis deviation Anterior infarct , age undetermined Abnormal ECG No previous ECGs available Confirmed by Marcin Odell ([id number]) on 07/28/2024 6:21:37 AM Referred By: REFERRED SELF Confirmed By: Marcin Odell
--- NOTE | 2024-07-28 06:46 | Electrocardiogram Report ---
Test Reason : Blood Pressure : */* mmHG Vent. Rate : 78 BPM Atrial Rate : 78 BPM P-R Int : 132 ms QRS Dur : 76 ms QT Int : 376 ms P-R-T Axes : * -72 75 degrees QTcB Int : 428 ms Low right atrial rhythm Left axis deviation Abnormal ECG When compared with ECG of 26-Jul-2024 12:06, (unconfirmed) Low right atrial rhythm is now Present Confirmed by Marcin Odell ([id number]) on 07/28/2024 6:46:05 AM Referred By: REFERRED SELF Confirmed By: Marcin Odell
== END 2024-07-27 16:34 | disposition home or self-care (01) ==
LOC: 3E 11:12 → ED 11:12 → SUATTDRO 15:56 → 3E 16:05